=== PATIENT | female | born 1990 | race Two or more races ===

== ENCOUNTER 2019-10-11 23:33 | Inpatient (IN) ==
[2019-10-11] MEDS ORDERED: BUTORPHANOL 2 MG/ML VIAL IV PRN (23:43)
[2019-10-11] MEDS ORDERED: ONDANSETRON 4 MG/2 ML VIAL IV PRN (23:43)
[2019-10-11] MEDS ORDERED: MEPERIDINE 50 MG/1 ML VIAL IV PRN (23:43)
[2019-10-11] MEDS ORDERED: LACTATED RINGERS 500 ML IV PRN (23:43)
[2019-10-12] MEDS: LACTATED RINGERS 1,000 ML IV SCH ×2 (00:10→06:14)
[2019-10-12 00:40] LABS: Basophils % 0.2 % (0.0-0.8); Eosinophils # 0.1 10*3/uL (0.0-0.87); Eosinophils % 1.5 % (0.00-10.9); Hematocrit 33.2 VOL% (35.7-47.0); Hemoglobin 10.7 GM/DL (12.0-16.0); Immature Granulocytes % 0.6 %; Immature Granulocytes Absolute 0.03 #; Lymphocytes # 1.4 10*3/uL (1.4-4.0); Lymphocytes % 27.7 % (21.3-54.2); Mean Corpuscular HGB Conc 32.2 GM/DL (32-36); Mean Corpuscular Volume 89.2 FL (87-102); Mean Platelet Volume 11.4 FL (9.6-12.0); Monocytes % 8.5 % (1.7-12.7); Neutrophils % 61.5 % (38.7-73.9); Platelet Count 217 T/CUMM (130-400); Red Blood Count 3.72 MC/CUMM (3.8-5.5); Red Cell Distribution Width 13.9 % (9.3-17.3); White Blood Count 5.2 T/CUMM (4-12)
[2019-10-12 00:45] LABS: Alanine Aminotransferase 14 U/L (13-56); Albumin 2.5 G/DL (3.4-5.0); Alkaline Phosphatase 127 U/L (45-117); Aspartate Amino Transferase 16 U/L (0-37); Bilirubin,Total < 0.39 MG/DL (0.2-1.0); Blood Urea Nitrogen 8 MG/DL (7-18); Calcium 8.8 MG/DL (8.5-10.1); Estimated Glom Filtration Rate 169 ML/MIN; Glucose 95 MG/DL (74-106); Osmolality,Calculated 272.7 MOS/KG (273-304); Total Protein 6.8 G/DL (6.4-8.3)
[2019-10-12] MEDS ORDERED: OXYTOCIN/LR 20 UNIT/1,000 ML BAG IV SCH (04:00)
[2019-10-12] MEDS ORDERED: PROMETHAZINE 25 MG/1 ML VIAL IM ONE (04:38)
[2019-10-12] MEDS ORDERED: NALOXONE 0.4 MG/ML VIAL IV PRN (04:38)
[2019-10-12] MEDS ORDERED: diphenhydrAMINE 50 MG/1 ML VIAL IV PRN ×2 (04:38)
[2019-10-12] MEDS ORDERED: ePHEDrine 50 MG/ML VIAL IV PRN (04:38)
[2019-10-12] MEDS ORDERED: hydrOXYzine HCL 25 MG/1 ML VIAL IM PRN (04:38)
[2019-10-12] MEDS ORDERED: ONDANSETRON 4 MG/2 ML VIAL IV ONE (04:38)
[2019-10-12] MEDS ORDERED: FAMOTIDINE 20 MG/2 ML VIAL IV ONE (05:00)
[2019-10-12] MEDS ORDERED: fentaNYL 2 MCG/ROPIV 0.2% EPID 100 ML EPIDURAL SCH (05:00)
[2019-10-12] MEDS ORDERED: CITRIC ACID/SODIUM CITRATE 30 ML UDCUP PO ONE (05:00)
[2019-10-12] MEDS ORDERED: TRANEXAMIC ACID 1,000 MG/10 ML VIAL ONE (10:57)
[2019-10-12] MEDS ORDERED: miSOPROStoL 200 MCG TABLET ONE (10:57)
[2019-10-12] MEDS ORDERED: METHYLERGONOVINE 0.2 MG/1 ML AMP ONE (10:57)
[2019-10-12] MEDS ORDERED: CARBOPROST TROMETHAMINE 250 MCG/ML AMP IM ONE (10:58)
[2019-10-12 11:22] LABS: Apearance,Urine CLEAR (Clear); Bilirubin,Urine Negative (Negative); Blood, Urine Negative (Negative); Glucose,Urine (UA) Negative (Negative); Ketones,Urine Negative (Negative); Mucus,Urine Occasional /LPF (Occasional); Nitrite,Urine Negative (Negative); Protein,Urine Negative; Urine Color Yellow (Yellow); Urine Specific Gravity 1.009 (1.001-1.035); Urine Urobilinogen < 2.0 EU/DL (0.2-1.0)
[2019-10-12 12:23] LABS: Cord Venous Blood HCO3 22.1 MMOL/L; Cord Venous Blood PCO2 42.8 MMHG; Cord Venous Blood PO2 33.2
[2019-10-12] MEDS ORDERED: WITCH HAZEL PADS 100/JAR TOP PRN (15:54)
[2019-10-12] MEDS ORDERED: HYDROCORTISONE 2.5% RECTAL CREAM 30 GM TUBE TOP PRN (15:54)
[2019-10-12] MEDS ORDERED: OXYTOCIN/LR 20 UNIT/1,000 ML BAG IV ONE (15:54)
[2019-10-12] MEDS ORDERED: MEASLES/MUMPS/RUBELLA VACCINE 0.5 ML VIAL SUBCUT ONE (15:54)
[2019-10-12] MEDS ORDERED: ACETAMINOPHEN 325 MG TABLET PO PRN (15:54)
[2019-10-12] MEDS ORDERED: RHO(D) IMMUNE GLOBULIN 300 MCG SYRINGE IM ONE (15:54)
[2019-10-12] MEDS ORDERED: BISACODYL 10 MG SUPP RECTAL PRN (15:54)
[2019-10-12] MEDS ORDERED: BENZOCAINE 20%/MENTHOL 0.5% SPRAY 56 GM CAN TOP PRN (15:54)
[2019-10-12] MEDS ORDERED: LANOLIN 50% CREAM 0.3 OZ TUBE TOP PRN (15:54)
[2019-10-12] MEDS ORDERED: DIPH/TET/ACEL PERT BOOSTER VACCINE 0.5 ML VIAL IM ONE (15:54)
[2019-10-12] MEDS ORDERED: oxyCODONE/ACETAMINOPHEN 5-325 MG TABLET PO PRN (15:54)
[2019-10-12] MEDS: oxyCODONE/ACETAMINOPHEN 5-325 MG TABLET PO PRN (17:20)
[2019-10-12] MEDS: IBUPROFEN 800 MG TABLET PO PRN (17:20)
[2019-10-12] MEDS: DOCUSATE SODIUM 100 MG CAPSULE PO SCH (22:25)
[2019-10-13 05:29] LABS: Basophils % 0.2 % (0.0-0.8); Eosinophils # 0.1 10*3/uL (0.0-0.87); Eosinophils % 1.8 % (0.00-10.9); Hematocrit 31.4 VOL% (35.7-47.0); Hemoglobin 10.1 GM/DL (12.0-16.0); Immature Granulocytes % 0.3 %; Immature Granulocytes Absolute 0.02 #; Lymphocytes # 1.6 10*3/uL (1.4-4.0); Lymphocytes % 25.9 % (21.3-54.2); Mean Corpuscular HGB Conc 32.2 GM/DL (32-36); Mean Corpuscular Volume 88.7 FL (87-102); Mean Platelet Volume 11.5 FL (9.6-12.0); Neutrophils % 63.8 % (38.7-73.9); Platelet Count 177 T/CUMM (130-400); Red Blood Count 3.54 MC/CUMM (3.8-5.5); Red Cell Distribution Width 13.7 % (9.3-17.3); White Blood Count 6.3 T/CUMM (4-12)
[2019-10-13] MEDS: DOCUSATE SODIUM 100 MG CAPSULE PO SCH ×2 (08:03→22:08)
[2019-10-13] MEDS: IBUPROFEN 800 MG TABLET PO PRN ×2 (08:03→22:08)
[2019-10-13] MEDS: oxyCODONE/ACETAMINOPHEN 5-325 MG TABLET PO PRN ×2 (08:03→22:08)
[2019-10-14 08:52] VITALS: BP 112/69
[2019-10-14] MEDS: DOCUSATE SODIUM 100 MG CAPSULE PO SCH (10:18)
[2019-10-14] MEDS: IBUPROFEN 800 MG TABLET PO PRN (12:07)
== END 2019-10-14 14:30 | disposition home or self-care (01) | DRG 998 ==
LOC: N.LDOUT 23:33 → N.LD 23:36 → N.OB 10-12 15:47
PROVIDERS: ADMIT Obstetrics & Gynecology; ATTEND Obstetrics & Gynecology